=== PATIENT | female | born 1970 | race Caucasian/White ===

== ENCOUNTER → 2017-11-06 | Outpatient (CLI) | payer OTHER ==
--- NOTE | 2017-11-10 11:18 | RADIOLOGY IMAGING REPORT ---
FACILITY: [facility] [place] PATIENT NAME: ELIA FIELDS : [id number] MR: [id number] V: [id number] EXAM DATE: [id number] ORDERING PHYSICIAN: MATHEUS CELESTIN TECHNOLOGIST: Concepcion Michelle PROCEDURE:BILATERAL DIGITAL SCREENING MAMMOGRAM WITH CAD ASSISTED INTERPRETATION & 3D TOMOSYNTHESIS BILATERAL XCCL VIEWS WERE ALSO PERFORMED 2D. COMPARISON:Prior mammograms 03/17/13 & 02/19/12. INDICATIONS:SCREENING FINDINGS: The breast tissue is nearly fatty replaced. There is no dominant mass, suspicious cluster of microcalcifications or persistent areas of architectural distortion. DIAGNOSTIC CATEGORY 1--NEGATIVE. RECOMMENDATIONS: ROUTINE MAMMOGRAM AND CLINICAL EVALUATION IN 1 YEAR. IMPRESSION: BIRADS 1: Negative. Dictated by: Catracho Garcia M.D. on 11/10/2017 at 9:02 Transcribed by: EVELYN on 11/10/2017 at 9:42 Approved by: Catracho Garcia M.D. on 11/10/2017 at 11:17 [facility]
== END ==
LOC: MAMO 03:33
PROVIDERS: ATTEND Nurse Practitioner Family
DX: Z12.31 Encounter for screening mammogram for malignant neoplasm of breast (principal)
CPT/HCPCS: 77063; 77067